=== PATIENT | male | born 1990 | race Caucasian/White ===

== ENCOUNTER 2020-08-31 20:41 | Emergency (ER) | payer OTHER ==
[~2020-08-31] VITALS: Ht 175.3 cm; Wt 86.1 kg
[2020-08-31 21:12] VITALS: BP 157/69
[2020-08-31] MEDS ORDERED: DIPH,PERTUSS(ACELL),TET VAC/PF 0.5 ML SYRINGE. VAX IM ONE (21:30)
--- NOTE | 2020-08-31 22:46 | PHYS DOC ---
Past History Past Medical History: No Pertinent History Past Surgical History: No Surgical History Alcohol Use: None Adult General Chief Complaint Chief Complaint: FINGER INJURY HPI HPI Patient is a 30-year-old male who presents with left ring finger injury. States he was moving some tables and got his finger caught in between them as they slid. States that it hurts, 5 out of 10, dull and achy in nature. Did not take any medications. Denies any other injuries. States he is not up-to-date on his tetanus vaccinations. Review of Systems Review of Systems Review of systems otherwise unremarkable except noted in HPI Current Medications Current Medications Current Medications Medications (Trade) Dose Ordered Sig/Georgi Start Time Stop Time Status Last Admin Dose Admin Diphtheria/ Pertussis/Tetanus Vacc (ADACEL TDap SYRINGE) 0.5 ml ONCE ONCE 08/31/20 21:30 08/31/20 21:31 DC 08/31/20 22:02 0.5 ML Allergies Allergies Allergies Coded Allergies Type Severity Reaction Last Updated Verified No Known Drug Allergies 08/31/20 No Physical Exam Physical Exam Constitutional: Well developed, well nourished, no acute distress, non-toxic appearance. [] Cardiovascular:Heart rate regular rhythm, no murmur [] Lungs & Thorax: No respiratory distress Extremities: No tenderness, no cyanosis, no clubbing, ROM intact, no edema. [] Neurologic: Alert and oriented X 3, normal motor function, normal sensory function, no focal deficits noted. [] Psychologic: Affect normal, judgement normal, mood normal. [] Current Patient Data Vital Signs Vital Signs Date Time Temp Pulse Resp B/P (MAP) Pulse Ox O2 Delivery O2 Flow Rate FiO2 08/31/20 21:12 98.2 118 16 157/69 (98) 97 Room Air EKG EKG [] Radiology/Procedures Radiology/Procedures [] Heart Score C/O Chest Pain: No Risk Factors: Risk Factors: DM, Current or recent (<one month) smoker, HTN, HLP, family history of CAD, obesity. Risk Scores: Risk Factors: DM, Current or recent (<one month) smoker, HTN, HLP, family history of CAD, obesity. Course & Med Decision Making Course & Med Decision Making Patient is a 30-year-old male who presents with left ring finger injury Vital signs not concerning. Physical exam noted above. Tetanus status updated. Wound cleaned. Given pain medication in the ED. Given ice pack. Imaging with no acute osseous abnormalities. Gave pain recommendations for home. Advised to follow-up with primary care as needed. Gave return precautions to the ED. Patient grateful, verbalized understanding and agreed with plan of discharge. Dragon Disclaimer Dragon Disclaimer This electronic medical record was generated, in whole or in part, using a voice recognition dictation system. Departure Departure: Impression: Primary Impression: Finger injury Disposition: HOME / SELF CARE / HOMELESS Condition: GOOD Referrals: PCP,ANGEL (PCP) FELICITAS BRANDT MD Patient Instructions: RICE - Routine Care for Injuries Additional Instructions: Please read all the attached information carefully. Please begin a Tylenol and ibuprofen regimen and include ice as needed. Please follow-up with your primary care physician as needed. Please come back to the emergency department with new or concerning symptoms as discussed. RAFFI RESENDIZ MD Aug 31, 2020 22:46
[2020-08-31] MEDS ORDERED: IBUPROFEN 600 MG TABLET. PO ONE (23:00)
[2020-08-31] MEDS ORDERED: oxyCODONE/APAP 5/325 1 TAB TABLET PO ONE (23:00)
--- NOTE | 2020-08-31 23:44 | RAD ---
EXAM: PA, oblique and lateral views of the left hand DATE: 08/31/2020 9:28 PM INDICATION: Reason: FINGER TRAUMA AT WORK. 4TH DIGIT / Spl. Instructions: / History: . COMPARISON: No Prior FINDINGS/ IMPRESSION: No evidence of acute fracture or dislocation. Joint spaces are preserved without significant degenerative/proliferative change. Soft tissue swelling about the left ring finger. Electronically signed by: Isai Henderson MD (08/31/2020 11:42 PM) MELISSA
== END 2020-08-31 23:02 | disposition home or self-care (01) ==
LOC: ER 20:41 → EEVIPCON 20:41 → ER 23:02
DX: S69.91XA Unspecified injury of right wrist, hand and finger(s), initial encounter (principal); W23.0XXA Caught, crushed, jammed, or pinched between moving objects, initial encounter; Y93.89 Activity, other specified; Y92.89 Other specified places as the place of occurrence of the external cause; Y99.8 Other external cause status
CPT/HCPCS: 73130; 90471; 90715; 99283